=== PATIENT | female | born 1990 | race Caucasian/White ===

== ENCOUNTER 2017-09-16 16:25 | Outpatient (CLI) | payer OTHER ==
[~2017-09-16] VITALS: Ht 162.6 cm; Wt 95.2 kg
[~2017-09-16 16:25] MED LIST: IMITREX25 MG PO; YAZ 28 TABLET1 EACH PO
[2017-09-16 16:43] VITALS: BP 133/81
[2017-09-16 16:53] VITALS: BP 127/64
[2017-09-16] MEDS ORDERED: PRENATAL TABLE1 EACH PO (16:53)
[2017-09-16 17:04] VITALS: BP 107/60
[2017-09-16 17:04] LABS: BASOPHIL (%) 0.4 % (0-1); EOSINOPHIL (%) 0.8 % (0-5); EOSINOPHIL COUNT 0.1 K/uL (0-0.3); HEMATOCRIT 29.8 % (36.0-46.0); HEMOGLOBIN 9.7 G/DL (11.9-15.5); IMMATURE GRANULOCYTE (%) 0.6 % (0.0-0.7); LYMPHOCYTE (%) 18.3 % (15-42); LYMPHOCYTE COUNT 2.1 K/uL (1.0-2.8); MCH 28.1 PG (29.0-34.0); MCHC 32.6 G/DL (30.0-36.0); MCV 86.4 FL (83-99); MONOCYTE (%) 8.7 % (3-12); NEUTROPHIL (%) 71.2 % (45-76); NRBC (%) 0.2 /100 WBC (0-0); PLATELET COUNT 187 K/uL (156-360); RBC DIS.WIDTH-CV 14.5 % (11.8-14.6); RED BLOOD COUNT 3.45 M/uL (3.80-5.20); WHITE BLOOD COUNT 11.3 K/uL (4.1-10.2)
[2017-09-16 17:28] LABS: ALBUMIN 3.1 G/DL (3.2-4.8); ALKALINE PHOSPHATASE 102 IU/L (3-129); ALT (GPT) 10 IU/L (3-49); AST (GOT) 12 IU/L (2-34); CHLORIDE 103 MEQ/L (99-109); CREATININE 0.5 MG/DL (0.6-1.3); GFR ESTIMATE (CALCULATED) > 59 mL/min/; GLUCOSE 75 mg/dL (70-99); POTASSIUM 4.1 MEQ/L (3.7-5.4); SODIUM 135 MEQ/L (136-147); TOTAL BILIRUBIN 0.2 MG/DL (0.0-1.0); TOTAL PROTEIN 5.5 G/DL (6.4-8.3); UREA NITROGEN (BUN) 7 mg/dL (9-23)
[2017-09-16 18:32] VITALS: BP 118/72
[2017-09-16 19:30] VITALS: BP 121/73
[2017-09-16 19:37] LABS: UR CREATININE CONCENTRATION 84.4 MG/DL
[2017-09-16 19:37] LABS: URIC ACID 4.2 mg/dL (3.1-9.2)
== END 2017-09-16 20:15 | disposition home or self-care (01) ==
LOC: LDRP-OP 16:25 → 2WEST 16:27 → LDRP-OP 11-05 10:39
PROVIDERS: Advanced Practice Midwife
DX: O26.893 Other specified pregnancy related conditions, third trimester (principal); R03.0 Elevated blood-pressure reading, without diagnosis of hypertension; Z3A.37 37 weeks gestation of pregnancy
CPT/HCPCS: 59025; 80053; 82570; 84156; 84550; 85025; G0378

== ENCOUNTER 2017-09-27 13:52 | Inpatient (IN) | payer OTHER ==
[2017-09-27] VITALS (12 sets, daily range): BP systolic 117–136; BP diastolic 68–83
[~2017-09-27] VITALS: Ht 162.6 cm; Wt 97.3 kg
[~2017-09-27 13:52] MED LIST changes: +PRENATAL TABLE1 EACH PO
[2017-09-27 15:27] LABS: BASOPHIL (%) 0.4 % (0-1); EOSINOPHIL (%) 0.9 % (0-5); EOSINOPHIL COUNT 0.1 K/uL (0-0.3); HEMATOCRIT 30.6 % (36.0-46.0); HEMOGLOBIN 9.7 G/DL (11.9-15.5); IMMATURE GRANULOCYTE (%) 0.6 % (0.0-0.7); LYMPHOCYTE (%) 17.7 % (15-42); MCH 26.9 PG (29.0-34.0); MCHC 31.7 G/DL (30.0-36.0); MCV 84.8 FL (83-99); MONOCYTE (%) 7.1 % (3-12); MONOCYTE COUNT 0.8 K/uL (0-0.8); NEUTROPHIL (%) 73.3 % (45-76); NEUTROPHIL COUNT 8.4 K/uL (1.8-6.4); PLATELET COUNT 221 K/uL (156-360); RBC DIS.WIDTH-CV 14.9 % (11.8-14.6); RBC DIS.WIDTH-SD 45.8 % (39-53); RED BLOOD COUNT 3.61 M/uL (3.80-5.20); WHITE BLOOD COUNT 11.4 K/uL (4.1-10.2)
[2017-09-27 15:39] LABS: AMPHETAMINE NEGATIVE (500 ng/mL); BARBITURATES NEGATIVE (200 ng/mL); BENZODIAZEPINES NEGATIVE (150 ng/mL); BUPRENORPHINE NEGATIVE (10 ng/mL); COCAINE NEGATIVE (150 ng/mL); METHADONE NEGATIVE (200 ng/mL); METHAMPHETAMINE NEGATIVE (500 ng/mL); OPIATES (MORPHINE) NEGATIVE (100 ng/mL); OXYCODONE NEGATIVE (100 ng/mL); PHENCYCLIDINE NEGATIVE (25 ng/mL); PROPOXYPHENE NEGATIVE (300 ng/mL); THC CANNABINOIDS NEGATIVE (50 ng/mL); TRICYCLIC ANTIDEPRESSANTS NEGATIVE (300 ng/mL)
[2017-09-27 15:56] LABS: CHLORIDE 102 MEQ/L (99-109); POTASSIUM 4.6 MEQ/L (3.7-5.4); SODIUM 130 MEQ/L (136-147)
[2017-09-27 15:58] LABS: TOTAL BILIRUBIN 0.3 MG/DL (0.0-1.0)
[2017-09-27 16:01] LABS: UR CREATININE CONCENTRATION 172.8 MG/DL
[2017-09-27 16:01] LABS: ALKALINE PHOSPHATASE 135 IU/L (3-129); ALT (GPT) 10 IU/L (3-49); AST (GOT) 17 IU/L (2-34); CREATININE 0.6 MG/DL (0.6-1.3); GFR ESTIMATE (CALCULATED) > 59 mL/min/; GLUCOSE 78 mg/dL (70-99); TOTAL PROTEIN 5.4 G/DL (6.4-8.3); UREA NITROGEN (BUN) 10 mg/dL (9-23)
[2017-09-28] VITALS (18 sets, daily range): BP systolic 106–162; BP diastolic 62–91
[2017-09-28] MEDS ORDERED: IBUPROFEN800 MG PO (15:23)
[2017-09-28] MEDS ORDERED: FERROUS SULFAT325 MG PO (15:23)
[2017-09-29 22:31] VITALS: BP 133/75
[2017-09-30 07:44] VITALS: BP 136/74
[2017-09-30 15:02] VITALS: BP 137/75
== END 2017-09-30 18:50 | disposition home or self-care (01) | DRG 775 ==
LOC: LDRP-OP 13:52 → 2WEST 13:53 → LDRP-OP 11-05 20:32
PROVIDERS: Midwife
DX: O13.4 Gestational [pregnancy-induced] hypertension without significant proteinuria, complicating childbirth (principal); O69.81X0 Labor and delivery complicated by cord around neck, without compression, not applicable or unspecified; O99.824 Streptococcus B carrier state complicating childbirth; O99.02 Anemia complicating childbirth; D50.9 Iron deficiency anemia, unspecified; O99.354 Diseases of the nervous system complicating childbirth; G43.909 Migraine, unspecified, not intractable, without status migrainosus; O99.52 Diseases of the respiratory system complicating childbirth; J45.909 Unspecified asthma, uncomplicated; O99.214 Obesity complicating childbirth; E66.9 Obesity, unspecified; Z68.30 Body mass index [BMI] 30.0-30.9, adult; Z3A.39 39 weeks gestation of pregnancy; Z37.0 Single live birth
CPT/HCPCS: 80053; 82570; 84156; 85025; G0378; J2540; J2590; J7120

== ENCOUNTER → 2017-12-06 | Outpatient (CLI) | payer OTHER ==
[~2017-12-06] MED LIST changes: +FERROUS SULFAT325 MG PO; +IBUPROFEN800 MG PO
== END | disposition home or self-care (01) ==
LOC: LAC 15:03
DX: Z39.1 Encounter for care and examination of lactating mother (principal); O92.79 Other disorders of lactation; O92.4 Hypogalactia; O92.03 Retracted nipple associated with lactation
CPT/HCPCS: G0463